=== PATIENT | female | born 1975 | race Caucasian/White ===

== ENCOUNTER → 2020-04-25 11:32 | Outpatient (CLI) | payer OTHER, SELFPAY ==
--- NOTE | ~2020-04-25 | US_ITS ---
EXAMINATION: US pelvic complete w TV EXAM DATE: 04/25/2020 12:06 INDICATION: N93.9 - Abnormal uterine and vaginal bleeding, unspecified . TECHNIQUE: Pelvic transabdominal and transvaginal sonogram was performed. There are multiple graysca le and Doppler images available for interpretation. There is no prior study for comparison. FINDINGS: Uterus measures 10.7 x 5.4 x 7.1 cm, with an anterior fibroid measuring 2.5 cm. Endometria l stripe measures 7 mm, within normal limits. There are nabothian cysts. There is no free pelvic fl uid. Right adnexa: The ovary measures 4.1 x 3.3 x 2.9 cm and is morphologically normal. Ovarian vascular f low confirmed. Left adnexa: The ovary measures 3.3 x 1.6 x 1.8 cm and is morphologically normal. Ovarian vascular fl ow confirmed. IMPRESSION: 1. Small fibroid. Reviewed, dictated and finalized at location B. [employer]IST IMPRESSION: 1. Small fibroid.
== END ==
PROVIDERS: PCP Family Medicine; Visit Provider Obstetrics & Gynecology
DX: N93.9 Abnormal uterine and vaginal bleeding, unspecified (principal); D25.9 Leiomyoma of uterus, unspecified
CPT/HCPCS: 76830; 76856

== ENCOUNTER 2020-05-26 12:58 | Outpatient (CLI) | payer OTHER, SELFPAY ==
--- NOTE | ~2020-05-26 | DEXA_ITS ---
Bone Density Report Name: Marina Lee Age: 44 Sex: Female Ethnicity: White Date of : 1975 Indication: parental hip fracture; Referring Provider: Paula, Jazmyn Pimentel Study: Bone densitometry was performed. Exam Date: May 26, 2020 Accession number: [id number] Bone Density: Region BMD T-score Z-score Classification AP Spine (L1-L4) 1.032 -0.1 0.4 Normal Femoral Neck (Left) 0.802 -0.4 0.1 Normal Total Hip (Left) 0.937 0.0 0.3 Normal Total Hip Bilateral Avg 0.941 0.0 0.4 Normal Femoral Neck (Right) 0.815 -0.3 0.2 Normal Total Hip (Right) 0.943 0.0 0.4 Normal World Health Organization criteria for BMD impression classify patients as: Normal (T-score at or above -1.0), Osteopenia (T-score between -1.0 and -2.5), or Osteoporosis (T-score at or below -2.5). 10-year Fracture Risk: FRAX not reported because: Premenopausal woman All T-scores for Spine Total, Hip Total, Femoral Neck at or above -1.0 Clinical Information Provided by Patient: Parent has had a hip fracture Patient maximum height was 62 Drinks caffeinated beverages Onset of menses at age 9 Premenopausal Number of children 2 Impression: The patient's bone mass is within expected range for age, gender and ethnicity. The patient has risk factors, including: parental hip fracture. Discussion: BONE DENSITY IS WITHIN EXPECTED LIMITS FOR AGE, SEX AND RACE. Bone density is within expected limits for age, sex and race at all sites measured. The patient should follow a healthful lifestyle (good nutrition with adequate calcium and vitamin D, and appropriate weight-bearing exercise). Follow-Up: Consider repeating this study in 5 years or sooner if there is some new clinical indication. Reported by: [facility] on 05/26/2020 1:23:00 PM. Reviewed, dictated and finalized at location A.
== END 2020-05-26 12:59 | disposition home or self-care (01) ==
PROVIDERS: PCP Family Medicine; Visit Provider Nurse Practitioner Adult Health
DX: Z13.820 Encounter for screening for osteoporosis (principal)
CPT/HCPCS: 77080

== ENCOUNTER 2021-12-11 08:22 | Outpatient (CLI) | payer OTHER, SELFPAY ==
--- NOTE | ~2021-12-11 | MM_ITS ---
EXAMINATION: MM screening selene BI w fam HISTORY: Screening TECHNIQUE: Craniocaudal and mediolateral oblique 3-D tomosynthesis images were obtained and synthetic 2-D images were generated. CAD analysis was submitted and interpreted. COMPARISON: 05/12/2012 BREAST PARENCHYMAL COMPOSITION: The breasts are heterogeneously dense, which may obscure small masses . FINDINGS: There is no evidence of suspicious mass, calcification, or architectural distortion to sugg est malignancy in either breast. There has been no suspicious interval change. IMPRESSION: 1. No mammographic evidence of malignancy. 2. Recommend routine screening mammography in one year. BI-RADS Category 1: Negative Reviewed, dictated and finalized at location A.
== END 2021-12-11 08:23 | disposition home or self-care (01) ==
PROVIDERS: PCP Family Medicine; Visit Provider Physician Assistant
DX: Z12.31 Encounter for screening mammogram for malignant neoplasm of breast (principal)
CPT/HCPCS: 77063; 77067

== ENCOUNTER 2022-09-04 12:08 | Outpatient (CLI) | payer OTHER, SELFPAY ==
[2022-09-04 13:04] LABS: Alanine Aminotransferase 16 U/L (6-35); Albumin Level 4.2 g/dL (3.5-5.1); Alkaline Phosphatase 54 U/L (38-126); Anion Gap 4 mmol/L (8-16); Aspartate Amino Transferase 22 U/L (14-36); Bilirubin,Total 0.3 mg/dL (0.2-1.3); Blood Urea Nitrogen 10 mg/dL (7-17); Calcium 8.8 mg/dL (8.4-10.2); Carbon Dioxide 31 mmol/L (22-30); Chloride 106 mmol/L (98-107); Estimated Glomerular Filt Rate > 60; Glucose 91 mg/dL (65-110); Sodium 141 mmol/L (137-145)
[2022-09-04 13:09] LABS: Hemoglobin A1C 5.2 % (<5.7)
[2022-09-04 13:45] LABS: HIV 1/2 Ab P24 Ag Result Negative (Negative)
== END 2022-09-04 12:09 | disposition home or self-care (01) ==
LOC: ANHLAB 12:10
PROVIDERS: PCP Family Medicine; Visit Provider Registered Nurse
DX: B37.31 Acute candidiasis of vulva and vagina (principal)
CPT/HCPCS: 36415; 80053; 83036; 86703; G0432

== ENCOUNTER 2022-11-08 07:59 | Outpatient (CLI) | payer OTHER, SELFPAY ==
[2022-11-08 09:04] LABS: Alanine Aminotransferase 42 U/L (6-35); Albumin Level 3.8 g/dL (3.5-5.1); Alkaline Phosphatase 55 U/L (38-126); Anion Gap 6 mmol/L (8-16); Aspartate Amino Transferase 34 U/L (14-36); Bilirubin,Total 0.4 mg/dL (0.2-1.3); Blood Urea Nitrogen 12 mg/dL (7-17); Calcium 8.4 mg/dL (8.4-10.2); Carbon Dioxide 27 mmol/L (22-30); Chloride 105 mmol/L (98-107); Cholesterol 179 mg/dL (0-200); Estimated Glomerular Filt Rate > 60; Glucose 90 mg/dL (65-110); HDL Direct 63 mg/dL; Sodium 138 mmol/L (137-145); Triglycerides 44 mg/dL (<150)
[2022-11-08 09:15] LABS: LDL Cholesterol Direct 89 mg/dL
== END 2022-11-08 08:00 | disposition home or self-care (01) ==
LOC: ANHLAB 08:01
PROVIDERS: PCP Family Medicine; Visit Provider Physician Assistant
DX: E78.5 Hyperlipidemia, unspecified (principal); Z86.32 Personal history of gestational diabetes
CPT/HCPCS: 36415; 80053; 80061

== ENCOUNTER 2023-01-22 14:03 | Outpatient (CLI) | payer OTHER, SELFPAY ==
--- NOTE | ~2023-01-22 | MR_ITS ---
EXAMINATION: MR pelvis wo con DATE: 01/22/2023 14:44 INDICATION: Lumbosacral radiculopathy. TECHNIQUE: Magnetic resonance imaging (MRI) of the pelvis was performed without intravenous contrast. COMPARISON: None. FINDINGS: There is 3 mm anterolisthesis of L4 on L5. There is mild lumbar spondylosis. There is a 4.9 cm pedunc ulated fibroid. There are multiple intramural fibroids measuring up to 1.8 cm. Right-sided hydrosalpi nx is noted. There are nabothian cysts in the cervix. There are no pathologically enlarged lymph node s. There is physiologic fluid in the pelvis. There is mild osteoarthritis of the sacroiliac joints an d hip joints. There is a small right hip joint effusion. The iliopsoas tendons are normal. There are small partial tears of the hamstring origins bilaterally. The gluteus minimus and gluteus medius tend ons are normal. IMPRESSION: 1. Right-sided hydrosalpinx. 2. Uterine fibroids. 3. Mild lumbar spondylosis. 4. Mild polyarticular osteoarthritis. 5. Small right hip joint effusion. Reviewed, dictated and finalized at location A. ANDER
== END 2023-01-22 14:04 | disposition home or self-care (01) ==
PROVIDERS: PCP Family Medicine
DX: D25.9 Leiomyoma of uterus, unspecified (principal); M47.26 Other spondylosis with radiculopathy, lumbar region; M16.0 Bilateral primary osteoarthritis of hip
CPT/HCPCS: 72195

== ENCOUNTER 2023-06-06 08:47 | Emergency (ER) | payer OTHER, SELFPAY ==
[2023-06-06] VITALS (8 sets, daily range): BP systolic 106–132; BP diastolic 77–95; PULSE 67–87; RESP 12–18; TEMP 36.3; O2SAT 100
--- NOTE | ~2023-06-06 | XR_ITS ---
EXAMINATION: XR chest 2V DATE: 06/06/2023 09:44 INDICATION: Left chest pain. TECHNIQUE: Frontal and lateral views of the chest were obtained. COMPARISON: None. FINDINGS: There is no pneumonia, pleural effusion, or pneumothorax. The heart size is normal. Surgica l clips in the right upper quadrant are likely from cholecystectomy. IMPRESSION: 1. No acute cardiopulmonary disease. Reviewed, dictated and finalized at location A.
--- NOTE | 2023-06-06 08:55 | ECG_ITS ---
Measurements Intervals [place] Rate: 75 P: 45 CA: 132 QRS: 15 QRSD: 90 T: 56 QT: 358 QTc: 400 Interpretive Statements SINUS RHYTHM LOW QRS VOLTAGE CANNOT EXCLUDE PREVIOUS ANTEROSEPTAL [place] ABNORMAL ECG NO PREVIOUS ECG AVAILABLE FOR COMPARISON Electronically Signed On 06-06-2023 12:30:11 CDT by Gavino Jonas M.D.
[2023-06-06 09:13] LABS: Basophils Percent Auto 0.7 % (0.2-1.2); Eosinophils Absolute Auto 0.2 K/mm3 (0-0.3); Eosinophils Percent Auto 3.1 % (0-4.4); Hematocrit 42.1 % (37.0-47.0); Hemoglobin 13.9 g/dL (12.0-15.0); Immature Granulocyte Absolute 0.02 K/mm3 (0.00-0.031); Immature Granulocyte Percent A 0.4 % (0-0.5); Lymphocytes Absolute Auto 1.45 K/mm3 (0.9-3.2); Lymphocytes Percent Auto 26.8 % (18.3-44.2); Mean Corpuscular Hemoglobin 29.3 pg (26-34); Mean Corpuscular Volume 88.6 fl (80-100); Mean Platelet Volume 9.7 fl (7.4-10.4); Monocytes Absolute Auto 0.4 K/mm3 (0.1-0.6); Monocytes Percent Auto 6.5 % (2.6-8.5); Neutrophils Absolute Auto 3.4 K/mm3 (1.3-6.7); Neutrophils Percent Auto 62.5 % (45.5-73.1); Platelet Count Result 223 k/mm3 (150-375); Red Blood Count 4.75 M/mm3 (4.2-5.4); Red Cell Distribution Width 13.3 % (11.5-14.5); White Blood Count 5.4 K/mm3 (4.5-10.0)
[2023-06-06 09:22] LABS: Prothrombin Time 13.4 Seconds (11.1-14.7)
[2023-06-06 09:23] LABS: Partial Thromboplastin Time 33.5 Seconds (22.3-36.8)
[2023-06-06 09:25] LABS: Alanine Aminotransferase 24 U/L (6-35); Albumin Level 4.3 g/dL (3.5-5.1); Alkaline Phosphatase 66 U/L (38-126); Anion Gap 4 mmol/L (4-12); Aspartate Amino Transferase 28 U/L (14-36); Bilirubin,Total 0.4 mg/dL (0.2-1.3); Blood Urea Nitrogen 15 mg/dL (7-17); Calcium 9.3 mg/dL (8.4-10.2); Carbon Dioxide 28 mmol/L (22-30); Chloride 106 mmol/L (98-107); Estimated CRCL calculation 96 ml/min; Estimated Glomerular Filt Rate > 60; Glucose 104 mg/dL (65-110); Lipase 43 U/L (23-300); Potassium 4.4 mmol/L (3.4-5.0); Sodium 138 mmol/L (137-145)
[2023-06-06 09:35] LABS: Troponin I < 0.012 ng/mL (0.000-0.034)
[2023-06-06] MEDS: ASPIRIN 81 MG CHEWABLE TABLET 324 MG PO (10:34)
--- NOTE | 2023-06-06 10:54 | ED.CHESTPAIN ---
HPI - Chest Pain General Chief Complaint: Chest Pain Stated Complaint: CP, dizzy Time Seen by Provider: 06/06/23 10:16 History of Present Illness HPI narrative: 47-year-old female presenting to the emergency department for evaluation of left-sided chest pain, increased indigestion and left upper quadrant pain. Patient does have a history of gastric reflux and does take omeprazole. Patient did have a recent cardiac stress test that was negative and patient reports she did have follow-up with her GI physician of the long ago had a scope that showed gastritis. Patient reports he has had worsening indigestion symptoms over the last few days. Related Data Home Medications Medication Instructions Recorded Confirmed cholecalciferol (vitamin D3) 50 50 mcg PO DAILY 03/30/20 10/11/22 mcg (2,000 unit) capsule meloxicam 15 mg tablet 15 mg PO DAILY 03/30/20 10/11/22 ondansetron HCl 4 mg tablet 4 mg PO Q8H 03/30/20 10/11/22 tizanidine 4 mg capsule 4 mg PO TID PRN 03/30/20 10/11/22 tramadol 50 mg tablet 50 mg PO Q6H PRN 03/30/20 10/11/22 multivitamin (Daily Multi-Vitamin 1 tablet PO DAILY 04/25/21 10/11/22 tablet) duloxetine 60 mg capsule,delayed 60 mg PO DAILY 08/01/22 10/11/22 release (Cymbalta) baclofen 5 mg tablet 5 mg PO DAILY 10/11/22 10/11/22 Allergies Allergy/AdvReac Type Severity Reaction Status Date / Time amoxicillin [From Augmentin] Allergy Swelling Verified 06/06/23 10:33 of Lip/Tongue/Throat clavulanic acid Allergy Swelling Verified 06/06/23 10:33 [From Augmentin] of Lip/Tongue/Throat Penicillins Allergy Unknown Verified 06/06/23 10:33 Review of Systems Review of Systems: All systems reviewed & are unremarkable except as noted in HPI and below PMFSH Past Medical History Medical History Chronic back pain H/O Lupis thyroiditis History of miscarriage Personal history of gestational diabetes Surgical History Surgical History H/O dilation and curettage History of cholecystectomy History of colposcopy [place] teeth removed Family History Family History Mother Breast cancer Diabetes mellitus Hypertension Other Breast cancer Social History Social History Smoking status: Never smoker Alcohol intake: current Drinks per week: 3 Substance use: never Lack of Transportation: No Lack of Food: Never True Current Housing: I Have Housing Concerned About Future Housing: No Difficulty Paying Gas/Electric Bills: No Difficulty Paying for Meds: No Currently Unemployed: No Education: Bachelor's Degree Living arrangements: with family Occupation/Education: occupation Gender identity (if verbalized by the patient): Female Sexual Orientation (if Verbalized by the Patient): Straight or Heterosexual Spiritual care concerns: No Exam Narrative: APPEARANCE: Well appearing, no pain, no distress, well-nourished. HEAD: normocephalic, atraumatic. EYES: PERRLA/EOMI, conjunctivae clear. NOSE: Normal no drainage EARS:TMS clear with good light reflex. THROAT: Pharynx clear, no exudate. NECK: Supple. No adenopathy, no masses. RESPIRATORY: Airway patent, respirations nonlabored. Clear to auscultation bilaterally, no rales, rhonchi, wheezing. CARDIOVASCULAR: Regular rate and rhythm without murmurs rubs or gallops. ABDOMINAL: left upper quadrant tenderness to palpation MUSCULOSKELETAL: sternal tenderness to palpation NEURO: Alert. Cranial nerves II through XII intact. grossly intact SKIN: Warm, dry. Normal Color Course Course Emergency Course: Patient was updated on the results of the workup and patient was comfortable with the plan for discharge and follow-up with primary care physician Vital Signs Vital signs: Vital Signs Temperature 97.3
[2023-06-06 11:16] LABS: D Dimer < 0.22 ug/mL (<0.48)
[2023-06-06] MEDS: BELLADONNA ALK/PHENOB ELIX 10 ML, MAG HYDROX/ALUMINUM HYD/SIMETH 30 ML, LIDOCAINE HCL 2... PO (11:16)
--- NOTE | 2023-06-06 11:46 | ECG_ITS ---
Measurements Intervals [place] Rate: 66 P: 38 NE: 139 QRS: 9 QRSD: 86 T: 53 QT: 377 QTc: 396 Interpretive Statements SINUS RHYTHM LOW QRS VOLTAGE CANNOT EXCLUDE PREVIOUS ANTEROSEPTAL [place] ABNORMAL ECG COMPARED TO ECG 06/06/2023 08:58:15 NO SIGNIFICANT DIFFERENCE Electronically Signed On 06-06-2023 12:38:06 CDT by Gavino Jonas M.D.
[2023-06-06 12:29] LABS: Troponin I < 0.012 ng/mL (0.000-0.034)
== END 2023-06-06 13:42 | disposition home or self-care (01) ==
PROVIDERS: Emergency Provider Emergency Medicine; PCP Family Medicine
DX: R07.89 Other chest pain (principal); K29.70 Gastritis, unspecified, without bleeding; M54.9 Dorsalgia, unspecified; G89.29 Other chronic pain
CPT/HCPCS: 36415; 71046; 80053; 83690; 84484; 85025; 85380; 85610; 85730; 93005; 99284; A9270

== ENCOUNTER 2023-11-14 09:18 | Outpatient (CLI) | payer OTHER, SELFPAY ==
--- NOTE | ~2023-11-14 | MR_ITS ---
EXAMINATION: MR brain/brain stem wo con DATE: 11/14/2023 09:55 INDICATION: Facial weakness. TECHNIQUE: Magnetic resonance imaging (MRI) of the brain and brainstem was performed without intraven ous contrast. COMPARISON: None. FINDINGS: There is a punctate focus of increased T2-weighted signal intensity in the left frontal lob e deep white matter, which is normal as an isolated finding. There is no intracranial hemorrhage, acu te infarction, or abnormal intracranial mass lesion. The ventricles are normal in size. The orbits ar e normal. The paranasal sinuses are clear. The mastoid air cells are normal. IMPRESSION: 1. Normal brain. Reviewed, dictated and finalized at location A. IMPRESSION: 1. Normal brain.
== END 2023-11-14 09:19 | disposition home or self-care (01) ==
LOC: MICIMG 09:19
PROVIDERS: PCP Family Medicine; Visit Provider Family Medicine
DX: R29.810 Facial weakness (principal)
CPT/HCPCS: 70551